=== PATIENT | male | born 1975 | race Caucasian/White ===

== ENCOUNTER → 2023-02-19 | Outpatient (CLI) | payer OTHER ==
[~2023-02-19] MED LIST: BARIUM for suspension 96% w/w (Vanilla Silq Medium Density) PO ONE; BARIUM for suspension 98% w/w (Vanilla Silq High Density) PO ONE
--- NOTE | 2023-02-19 12:05 | Diagnostic Imaging Report ---
INDICATION: Food occasionally getting stuck in the mid chest. Patient ingested effervescent crystals as well as thin and thick barium and imaging of the esophagus was performed in multiple obliquities. Total of 49 seconds of fluoroscopic time was utilized. Reference air Kerma is 54.4 mGy. Total of 40 images were obtained. Esophagus has a smooth contour and appears to be widely patent. No strictures identified. No mass is detected. No gastroesophageal reflux or hiatal hernia was demonstrated. IMPRESSION: Unremarkable barium esophagram. Dictated by: Dictated on workstation # [id number]
== END ==
LOC: RAD 09:16
PROVIDERS: ATTEND Pediatrics
DX: R13.19 Other dysphagia (principal)
CPT/HCPCS: 74220